=== PATIENT | male | born 1995 | race African-American/Black ===

== ENCOUNTER 2017-09-07 21:16 | Emergency (ER) | payer MEDICAID, OTHER ==
[~2017-09-07] VITALS: Ht 182.9 cm; Wt 80.0 kg
[2017-09-07] MEDS ORDERED: ONDANSETRON ODT 4 MG PO ONE (22:30)
[2017-09-07] MEDS ORDERED: ONDANSETRON ODT 4 MG ONE (22:34)
[2017-09-07 22:54] LABS: BASOPHILS # (AUTO) 0.05 x10^3/uL (0-0.1); BASOPHILS % (AUTO) 1 % (0-1); EOSINOPHILS # (AUTO) 0.17 x10^3/uL (0-0.4); EOSINOPHILS % (AUTO) 2 % (1-7); LYMPHOCYTES # (AUTO) 0.65 x10^3/uL (1-3.4); LYMPHOCYTES % (AUTO) 8 % (22-44); MD NO; MEAN CORPUSCULAR HEMOGLOBIN 31.4 pg (27.5-34.5); MEAN CORPUSCULAR HGB CONC 33.3 g/dL (33.2-36.2); MEAN CORPUSCULAR VOLUME 94.3 fL (81-97); MEAN PLATELET VOLUME 8.6 fL (7.4-10.4); MONOCYTES # (AUTO) 0.68 x10^3/uL (0.2-0.8); MONOCYTES % (AUTO) 8 % (2-9); NEUTROPHILS # (AUTO) 7.05 x10^3/uL (1.8-6.8); NEUTROPHILS % (AUTO) 82 % (42-75); PLATELET COUNT 270 x10^3/uL (130-400); RED BLOOD COUNT 5.49 x10^6/uL (4.38-5.82)
[2017-09-07 22:55] LABS: ALANINE AMINOTRANSFERASE 21 U/L (12-78); ALBUMIN 4.3 g/dL (3.4-5.0); ANION GAP 8 mmol/L (5-15); CALCIUM 9.3 mg/dL (8.5-10.1); CHLORIDE 107 mmol/L (98-107); CREATININE 1.23 mg/dL (0.7-1.3)
[2017-09-07 22:57] LABS: ALKALINE PHOSPHATASE 98 U/L (45-117); BILIRUBIN,TOTAL 0.9 mg/dL (0.2-1.0); TOTAL PROTEIN 8.8 g/dL (6.4-8.2)
[2017-09-07 23:56] VITALS: BP 128/65
== END 2017-09-07 23:58 | disposition home or self-care (01) ==
LOC: ED 23:50
DX: A09 Infectious gastroenteritis and colitis, unspecified (principal)
CPT/HCPCS: 36415; 80053; 83690; 85025; 99284; Q0162